=== PATIENT | male | born 1990 | race African-American/Black ===

== ENCOUNTER 2024-09-09 16:48 | Emergency (ER) | payer OTHER ==
[~2024-09-09] VITALS: Ht 167.6 cm; Wt 68.9 kg
[2024-09-09 17:23] VITALS: PULSE 80; RESP 16; TEMP 98.4; O2SAT 100
[2024-09-09] MEDS ORDERED: PROTONIX20 MG PO (17:32)
[2024-09-09] MEDS ORDERED: AMOXICILLIN500 MG PO (17:32)
== END 2024-09-09 17:37 | disposition home or self-care (01) ==
LOC: ER 16:54
DX: J01.91 Acute recurrent sinusitis, unspecified (principal); R09.81 Nasal congestion; F17.210 Nicotine dependence, cigarettes, uncomplicated
CPT/HCPCS: 99283